=== PATIENT | male | born 1980 | race Caucasian/White ===

== ENCOUNTER 2020-09-23 17:54 | Emergency (ER) | payer OTHER, SELFPAY ==
[2020-09-23 17:57] VITALS: BP 127/76; PULSE 70; RESP 18; TEMP 36.2; O2SAT 98; BMI 33.5
== END 2020-09-23 19:25 | disposition left against medical advice (07) ==
PROVIDERS: Emergency Provider Emergency Medicine
DX: L02.419 Cutaneous abscess of limb, unspecified (principal); M79.602 Pain in left arm; M79.601 Pain in right arm
CPT/HCPCS: 99281; 99282

== ENCOUNTER 2022-12-31 15:53 | Emergency (ER) | payer OTHER, SELFPAY ==
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
[2022-12-31 16:21] VITALS: BP 119/71; PULSE 77; RESP 18; TEMP 36.3; O2SAT 96; BMI 34.9
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
--- OUTSIDE RECORDS SUMMARY | 2022-12-31 16:47 | XMS_ITS | Continuity of Care Document ---
Author Name Unknown Organization [facility] Infectious Disease Address [address] [place] [address]- Care Team Providers Care Treasury Consultant Name Role Phone tSeve Uriarte MD Primary Care Physician Encounter [facility] [place] Date(s): 09/29/20 - 11/06/20 [facility] Disease [address] [place] [id number]- Attending Physician: Caleb Uribe MD Admitting Physician: Caleb Uribe MD Referring Physician: Whitley Bonilla Allergies, Adverse Reactions, Alerts Substance Reaction Severity Status penicillin unknown Active Tylenol Active Immunizations Given and Recorded Vaccine Date Status Refusal Reason tetanus/diphtheria/pertussis, acel(Tdap) 09/27/18 Given Medications ibuprofen 800 mg oral tablet 800 mg, 1, tablet, By Mouth, Every 6 hours, # 40 tablet, Refills 0, Tot. Refills 0, Maintenance, 09/27/18 12:24:13 EST, Print Requisition Start Date: 09/27/18 Status: Ordered Methadone = 94 mg, By Mouth, Daily, 0 Refills, Maintenance, 12/06/15 6:23:18 EDT Start Date: 12/06/15 Status: Ordered MiraLax oral powder for reconstitution = 17 Gm, By Mouth, Daily, PRN Constipation, dissolve in water before taking, # 255 Gm, 0 Refills, Maintenance, 12/07/15 12:59:10, REC Powder, 17 Gm By Mouth Daily,PRN:Constipation,Instr:dissolve in water before taking Start Date: 12/07/15 Status: Ordered sucralfate 1 gm oral tablet 1 Gm, 1, tablet, By Mouth, 3 times a day before meals and bedtime, # 56 tablet, Refills 0, Tot. Refills 0, Maintenance, 10/09/18 22:13:58 EST, Print Requisition Start Date: 3/7/19 Stop Date: 10/23/18 Status: Ordered Xanax 2 mg oral tablet 1 tablet = 2 mg, By Mouth, 3 times a day, PRN for anxiety, 0 Refills, Maintenance, 12/06/15 6:24:12, Tablet Start Date: 12/06/15 Status: Ordered Social History Social History Type Response Tobacco Use: chewing tobacco . Sex
--- OUTSIDE RECORDS SUMMARY | 2022-12-31 16:47 | XMS_ITS | Continuity of Care Document ---
Author Name Unknown Organization [facility] Address [address] [place] [id number]- Care Team Providers Care Right Of Way Buyer Name Role Phone Chapito LISA, Steve Lewis Primary Care Physician En[place] [facility] [place] Date(s): [place]12[place] - 11/12/[address] [address] Attending Physician: Zachery Anderson NP Admitting Physician: Zachery Anderson NP Referring Physician: Zachery Anderson NP Allergies, Adverse Reactions, Alerts Substance Reaction Severity [...] 10/09/18 22:13:58 EST, Print Requisition Start Date: 10/09/18 Stop Date: 10/23/18 Status: Ordered Xanax 2 mg oral tablet 1 tablet = 2 mg, By Mouth, 3 times a day, PRN for anxiety, 0 Refills, Maintenance, 12/06/15 6:24:12, Tablet Start Date: 12/06/15 Status: Ordered Social History Social History Type Response Tobacco Use: chewing tobacco . Sex
--- OUTSIDE RECORDS SUMMARY | 2022-12-31 16:47 | XMS_ITS | Continuity of Care Document ---
Author Name Unknown Organization [facility] Infectious Disease Address [address] [place] [address]- Care Team Providers Care Fusing Machine Operator Name Role Phone Chapito LISA, Steve Lewis Primary Care Physician Encounter [facility] [place] Date(s): 10/13/20 - 11/12/20 [facility] Infectious Disease [address] [place] [id number]- Allergies, Adverse Reactions, Alerts Substance Reaction Severity [...]
--- OUTSIDE RECORDS SUMMARY | 2022-12-31 16:48 | XMS_ITS | Continuity of Care Document ---
Author Name Unknown Organization [facility] Infectious Disease Address [address] [place] [address]- Care Team Providers Care Director Digital Name Role Phone Steve Uriarte MD Primary Care Physician [phone] Encounter [facility] [place] Date(s): 10/04/20 - 11/03/20 [facility] Infectious Disease [address] [place] [id number]- Attending Physician: Rosio Meneses Admitting Physician: AdmRosio rowe Referring Physician: Admtr, [id number] Allergies, Adverse Reactions, Alerts Substance Reaction Severity [...]
[2022-12-31] MEDS: oxyCODONE HCl Immed Release 5 MG TABLET 10 MG PO (18:31)
[2022-12-31] MEDS: LORazepam 1 MG TABLET PO (18:31)
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
== END 2022-12-31 19:25 | disposition short-term general hospital (02) ==
PROVIDERS: Emergency Provider Emergency Medicine; PCP Internal Medicine
DX: S02.40DA Maxillary fracture, left side, initial encounter for closed fracture (principal); S02.19XA Other fracture of base of skull, initial encounter for closed fracture; S06.5XAA Traumatic subdural hemorrhage with loss of consciousness status unknown, initial encounter; R07.89 Other chest pain; R51.9 Headache, unspecified; Y04.2XXA Assault by strike against or bumped into by another person, initial encounter; Y93.9 Activity, unspecified; Y92.9 Unspecified place or not applicable; Y99.9 Unspecified external cause status; Z79.899 Other long term (current) drug therapy
CPT/HCPCS: 70450; 70486; 71045; 72125; 99284; 99285